=== PATIENT | female | born 1995 | race Caucasian/White ===

== ENCOUNTER 2016-11-13 20:54 | Emergency (ER) | payer SELFPAY ==
[2016-11-13 20:58] VITALS: BP 112/53; PULSE 70; TEMP 98.2; BMI 19.3
--- NOTE | 2016-11-13 21:17 | PDOC ---
History of Present Illness - General History Source: Patient Exam Limitations: No Limitations - History of Present Illness Initial Comments: 11/13/16 21:17 The patient is a 21 year old female, with no significant past medical history who presents to the emergency department with sore throat and cough for about 1 week. She ranks her pain a 4/10 in pain intensity. She reports recent contact with a friend who was coughing a lot after returning from [facility]. She denies recent chills, headache or dizziness. She denies recent nausea, vomit, diarrhea or constipation. She denies recent dysuria, frequency, urgency or hematuria. She denies recent chest pain or shortness of breath. Allergies: NKA Past surgical history: None reported. Social history: Nonsmoker. Denies EtOH use and recreational drug use. Primary Care Physician: <Matthias Washington - Last Filed: 11/13/16 21:17> <Forrest Amado - Last Filed: 11/14/16 02:54> - General Chief Complaint: Sore Throat Stated Complaint: SORE THROAT Past History <Matthias Washington - Last Filed: 11/13/16 21:17> - Past Medical History Other medical history: MIGRAINES - Immunization History Immunization Up to Date: Yes - Psycho/Social/Smoking Cessation Hx Anxiety: No Suicidal Ideation: No Smoking History: Never smoked Hx Alcohol Use: Yes (OCCASSIONAL) Substance Use Type: None <Forrest Amado - Last Filed: 11/14/16 02:54> - Past Medical History Allergies/Adverse Reactions: Allergies Allergy/AdvReac Type Severity Reaction Status Date / Time No Known Allergies Allergy Verified 10/15/13 11:52 Home Medications: Ambulatory Orders NK [No Known Home Medication] 11/13/16 Review of Systems - Review of Systems Able to Perform ROS?: Yes Comments:: 11/13/16 21:17 GENERAL/CONSTITUTIONAL: +subjective fever. No: chills, weakness, loss of appetite. HEAD, EYES, EARS, NOSE AND THROAT: +sore throat. No: change in vision, ear pain , discharge CARDIOVASCULAR: No: chest pain, lightheadedness, palpitations, syncope RESPIRATORY: + cough. No:shortness of breath, wheezing, hemoptysis, stridor. GASTROINTESTINAL: No: nausea, vomiting, diarrhea, abdominal cramping, rectal bleeding, constipation. GENITOURINARY: No: dysuria, hematuria, frequency, urgency, flank pain. MUSCULOSKELETAL: No: back pain, neck pain, joint pain, muscle swelling or pain SKIN : No: lesions, pallor, rash or easy bruising. NEUROLOGIC: No: headache, vertigo, paresthesias, weakness ENDOCRINE: No: unexplained weight gain or loss HEMATOLOGIC/LYMPHATIC: No: anemia, easy bleeding, swelling nodes. <Matthias Washington - Last Filed: 11/13/16 21:17> *Physical Exam - Vital Signs Last Vital Signs Temp Pulse Resp BP Pulse Ox 98.2 F 70 14 112/53 100 11/13/16 20:55 11/13/16 20:55 11/13/16 20:55 11/13/16 20:55 11/13/16 20:55 - Physical Exam Comments: 11/13/16 21:18 GENERAL: The patient is in no acute distress. HEAD: Normal with no signs of trauma. EYES: PERRLA, EOMI, sclera anicteric, conjunctiva clear. ENT: Ears normal, nares patent, oropharynx clear without exudates. Moist mucous membranes. NECK: Normal range of motion, supple without lymphadenopathy, JVD, or masses. LUNGS: Breath sounds equal, clear to auscultation bilaterally. No wheezes, and no crackles. HEART: Regular rate and rhythm, normal S1 and S2 without murmur, rub or gallop. ABDOMEN: Soft, nontender, normoactive bowel sounds. No guarding, no rebound. No masses palpable. EXTREMITIES: Normal range of motion, no edema. No clubbing or cyanosis. No erythema, or tenderness. NEUROLOGICAL: Cranial nerves II through XII grossly intact. Normal speech. No focal neurological deficits. MUSCULOSKELETAL: Back non-tender to palpation, no CVA tenderness SKIN: Warm, Dry, normal turgor, no rashes or lesions noted. <Matthias Washington - Last Filed: 11/13/16 21:17> - Vital Signs Last Vital Signs Temp Pulse Resp BP Pulse Ox 98.2 F 70 14 112/53 100 11/13/16 20:55 11/13/16 20:55 11/13/16 20:55 11/13/16 20:55 11/13/16 20:55 <Forrest Amado - Last Filed: 11/14/16 02:54> Medical Decision Making - Medical Decision Making 11/14/16 02:54 rapid strep negative viral pharyngitis symptomatic mgmt <Forrest Amado - Last Filed: 11/14/16 02:54> *DC/Admit/Observation/Transfer - Attestations Scribe Attestion: 11/13/16 21:18 Documentation prepared by Matthias Washington, acting as medical health researcher for Forrest Amado MD. <Matthias Washington - Last Filed: 11/13/16 21:17> <Forrest Amado - Last Filed: 11/14/16 02:54> Diagnosis at time of Disposition: Pharyngitis Qualifiers: Pharyngitis/tonsillitis etiology: unspecified etiology Qualified Code(s): J02.9 - Acute pharyngitis, unspecified - Discharge Dispostion Disposition: HOME Condition at time of disposition: Stable - Referrals Referrals: Sultana Dias [Primary Care Provider] - - Patient Instructions Printed Discharge Instructions: DI for Viral Pharyngitis
== END 2016-11-13 22:45 | disposition home or self-care (01) ==
LOC: FER 20:54
DX: J02.9 Acute pharyngitis, unspecified (principal)
CPT/HCPCS: 87070; 87430; 99281-25